=== PATIENT | male | born 1955 | race Hispanic/Latino ===

== ENCOUNTER 2018-09-16 11:01 | Day surgery (SDC) | payer MEDICAID ==
[~2018-09-16 11:01] MED LIST: TETRACAINE 0.5% OS SCH; XYLOCAINE 2%/ EPI 1:200,000 INFILTRATI ONE
[2018-09-16] MEDS: VIGAMOX OS SCH ×3 (11:32→11:42)
--- NOTE | 2018-09-16 11:37 | Anesthesia Consultation ---
Anesthesia Consult and Med Hx Date of service: 09/16/18 - Airway Anesthetic Teeth Evaluation: Edentulous ROM Head & Neck: Adequate Mental/Hyoid Distance: Adequate Mallampati Class: Class I Intubation Access Assessment: Good - Pre-Operative Health Status ASA Pre-Surgery Classification: ASA4 Proposed Anesthetic Plan: MAC - Pulmonary Hx Smoking: Yes (1/2 PPD SINCE AGE 16) COPD: Yes (USE INHALERS AND NEBS) Hx Pneumonia: Yes - Cardiovascular System Hx Hypertension: Yes (CAREGIVER STATES HE NEVER HAD ON HYPOTENSION) Hx Coronary Artery Disease: Yes Hx Heart Attack/AMI: Yes (2013) Hx Pacemaker: Yes Hx Internal Defibrillator: Yes (2018) - Central Nervous System Hx Seizures: Yes (2013) Hx Back Pain: Yes Hx Psychiatric Problems: Yes - Endocrine Hx Hypothyroidism: Yes - Other Systems Hx Alcohol Use: Yes Hx Cancer: No
--- NOTE | 2018-09-16 11:38 | Anesthesia Day of Surgery ---
Anesthesia Day of Surgery - Day of Surgery Patient Examined: Yes Patient H&P Reviewed: Yes Patient is NPO: Yes Beta Blockers: Yes Cardiac Clearance: Yes
[2018-09-16] MEDS ORDERED: SUBLIMAZE ONE (12:13)
[2018-09-16] MEDS ORDERED: mitoMYcin 0.02% Opth Soln *OR USE ONLY OS ONE (12:28)
[2018-09-16] MEDS ORDERED: mitoMYcin 0.02% Opth Soln *OR USE ONLY OP ONE (12:29)
--- NOTE | 2018-09-16 12:33 | Short Stay Summary ---
Short Stay Documentation Date of service: 09/16/18 - History H&P: obtained from office - Allergies and Medications Current Medications: Allergies No Known Allergies Allergy (Verified 09/15/18 15:21) Home Medications Medication Instructions Recorded Confirmed Last Taken Type Aspirin EC 81 mg PO QDAY 08/30/14 09/13/18 09/15/18 History Digoxin [Lanoxin] 0.125 mg PO DAILY 08/30/14 09/13/18 09/15/[address] [Depakote Dr] 250 mg PO BID 08/30/14 09/13/18 09/15/18 History Ipratropium/Albuterol Sulfate 1 puff INHALATION BID 08/30/14 09/13/18 09/15/18 History [Combivent Respimat] Levothyroxine [Synthroid] 50 mcg PO QAM 08/30/14 09/13/18 09/15/18 History Methadone [Dolophine] 10 mg PO TID 08/30/14 09/16/18 09/16/18 08:30 History Tamsulosin [Flomax] 0.4 mg PO QDAY 08/30/14 09/13/18 09/15/18 History dilTIAZem [Cardizem] 30 mg PO BID 08/30/14 09/13/18 09/15/18 History raNITIdine HCl [Ranitidine 150mg 150 mg PO BID 08/30/14 09/13/18 09/15/18 History Cap] ALBUTEROL NEB's [Proventil] 2.5 mg IH TID PRN 09/13/18 09/13/18 09/15/18 History Albuterol Sulfate [Proventil Hfa] 2 puff IH Q4H PRN 09/13/18 09/13/18 09/15/18 History Nitroglycerin [Nitrostat] 0.4 mg SL Q5M PRN 09/13/18 09/13/18 Unknown History Omeprazole 10 mg PO DAILY 09/13/18 09/13/18 09/15/18 History Active Medications Mitomycin (Mitomycin 0.02% Opth Soln *Or Use Only*) 2 drops OP ONCE ONE Stop: 09/16/18 12:30 Moxifloxacin HCl (Vigamox) 1 drops OS Q5MIN MICK Stop: 09/16/18 23:59 Last Admin: 09/16/18 11:42 Dose: 1 drops Documented by: Tetracaine HCl (Tetracaine 0.5%) 1 drops OS Q5M MICK Stop: 09/16/18 23:59 Last Admin: 09/16/18 11:32 Dose: 1 drops Documented by: - Brief post op/procedure progress note Date of procedure: 09/16/18 Pre-op diagnosis: epithelial haze left eye Post-op diagnosis: same Procedure: Superficial keratectomy with amniotic left membrane placement mitomycin-C, 2- conjunctival resection from 4 to 6:00 Anesthesia: MAC, local Surgeon: PATRICIA HALEY Estimated blood loss: none Pathology: none Condition: stable - Disposition Condition at discharge: Good Disposition: DC-01 TO HOME OR SELFCARE - Discharge Diagnoses (1) Dry eye of left side Status: Acute (2) Corneal subepithelial haze Status: Chronic Qualifiers: Laterality: left Qualified Code(s): H18.892 - Other specified disorders of cornea, left eye Short Stay Discharge Plan Follow up with: SARA KNOX [Other] - 7 Days
--- NOTE | 2018-09-16 12:38 | Operative Report ---
Operative Report Operative Report: PREOPERATIVE DIAGNOSIS: Severe dry eye , subepithelial haze left eye POSTOPERATIVE DIAGNOSIS: Same patient was noted to have neovascularization of the iris OPERATIVE PROCEDURE: Superficial keratectomy with mitomycin-C amniotic rough membrane placement and conjunctival resection left eye SURGEON: Johanna Galicia M.D. [employer] SURGEON: luz ANESTHESIA: Monitored anesthesia care TAR MAN: COMPLICATIONS: None ALLERGIES: NKDA PREOPERATIVE NOTE: The risks, benefits and alternatives of surgery were explained to the patient who after confirmining understanding elected to proceed with surgery. The risks discussed included but were not limited to infection, further surgery, loss of vision, loss of the eye. The patient had multiple opportunities to ask questions and have them answered. Preoperative instruction sheet was provided and explained to the patient and/or family. PROGNOSIS: Excellent INDICATIONS FOR SURGERY: Distortion of vision from the lesion. Without treatment, permanent visual loss is expected. OPERATIVE REPORT: The patient was taken into the preoperative area and then sedated and monitored by Anesthesia. The patient was prepped by applying a Betadine scrub to the periorbital area, the adjacent cheek, and the forehead. The prepped areas were dried with sterile gauze. The patient was draped, and a speculum was placed between the eyelids. 2% lidocaine was injected below the body of the elevated conjunctiva. The epithelial haze was moved using a crescent blade. These were found to be a very thick layer of cells. Mitomycin-C was placed on the cornea for about 40 seconds. A nahed bur on a high-speed drill was used to smooth the area of the cornea. The contraception was undertaken from 4 to 6:00, followed by light cautery. Mitomycin-C was placed on bare sclera x 40 secs on the eye with Weck-cecil sponges and immediately irrigated off. The irrigation was done liberally to prevent any Mitomycin-C contamination to the rest of the field and the eye. The cornea was irrigated with balanced salt solution. Amniotic rough membrane was placed onto the cornea, followed by placement of a bandage contact lens. MEDICATIONS APPLIED AT END OF SURGERY: bandage Contact lens was placed onto the eye fallowed by the application of Vigamox. DISCHARGE SUMMARY: The patient was released in stable condition. The patient and those with the patient were given a written sheet of postoperative instructions and counseling on any abnormal laboratory studies. They are to call immediately for difficulties.
[2018-09-16] MEDS ORDERED: PRED FORTE 1% OS NR (13:00)
[2018-09-16] MEDS ORDERED: XYLOCAINE 2%/ EPI 1:200,000 INFILTRATI ONE (13:01)
[2018-09-16 13:54] VITALS: BP 121/83
== END 2018-09-16 13:10 | disposition home or self-care (01) ==
LOC: OR 11:01
DX: H04.122 Dry eye syndrome of left lacrimal gland (principal); H18.892 Other specified disorders of cornea, left eye; F17.210 Nicotine dependence, cigarettes, uncomplicated; I25.10 Atherosclerotic heart disease of native coronary artery without angina pectoris; I27.20 Pulmonary hypertension, unspecified; I48.91 Unspecified atrial fibrillation; I10 Essential (primary) hypertension; J44.9 Chronic obstructive pulmonary disease, unspecified; F32.9 Major depressive disorder, single episode, unspecified; K21.9 Gastro-esophageal reflux disease without esophagitis; M19.90 Unspecified osteoarthritis, unspecified site; Z72.89 Other problems related to lifestyle; E03.9 Hypothyroidism, unspecified; Z98.890 Other specified postprocedural states; Z83.3 Family history of diabetes mellitus; Z80.8 Family history of malignant neoplasm of other organs or systems; Z79.899 Other long term (current) drug therapy; Z98.41 Cataract extraction status, right eye; Z98.42 Cataract extraction status, left eye; Z95.0 Presence of cardiac pacemaker; Z87.442 Personal history of urinary calculi; Z82.49 Family history of ischemic heart disease and other diseases of the circulatory system
CPT/HCPCS: 65778; J3010; J7315; V2790